=== PATIENT | male | born 1980 | race Caucasian/White ===

== ENCOUNTER 2017-09-21 21:51 | Emergency (ER) | payer OTHER ==
[2017-09-21 22:16] VITALS: BP 122/76; PULSE 76; RESP 16; TEMP 97.8; O2SAT 99
[2017-09-21] MEDS ORDERED: Amoxicillin-Clav 875-125 mg Tab PO STA (23:12)
[2017-09-21] MEDS ORDERED: TDAP Vaccine 0.5 mL Syr IM ONE (23:12)
[2017-09-21] MEDS ORDERED: Rabies Vaccine 2.5 U VIAL IM ONE (23:14)
[2017-09-21] MEDS ORDERED: Rabies Immune Globulin 150 INTLU/ML VIAL IM ONE (23:47)
--- NOTE | 2017-09-22 00:01 | ED PDOC ---
Arrival/HPI - General Chief Complaint: Bite Time Seen by Provider: 09/21/17 23:09 Historian: Patient - History of Present Illness Narrative History of Present Illness (Text): 37 y/o male w/ no significant pmhx presents s/p dog bite to his rt. 2nd digit over the DIP, while outside a [place] trying to restrain his son from toucing a dog through a parked car's window, with the seasonal driver in the front seat. The seasonal driver stated my dog has all hs vaccines, but then refused to await jeremy peña and sped off . Pt managed to capture license plate and file police report and desires to be safe and receive rabies vaccine until antirabies vaccine can be confirmed by jeremy peña upon aprpehension of the general dentist/owner and his dog, deneis any tendinous deficit. 09/21/17 23:56 Time/Duration: Prior to Arrival Symptom Onset: Sudden Symptom Course: Unchanged Past Medical History - Provider Review Nursing Documentation Reviewed: Yes - Travel History Have you recently traveled outside [place] w/in the past 3 mons?: No - Infectious Disease Hx of Infectious Diseases: None - Cardiac Hx Cardiac Disorders: Yes - Psychiatric Hx Substance Use: No - Anesthesia Hx Anesthesia: No Family/Social History - Physician Review Nursing Documentation Reviewed: Yes Family/Social History: No Known Family HX Smoking Status: Heavy Smoker > 10 Cigarettes Daily Hx Alcohol Use: No Hx Substance Use: No Allergies/Home Meds Allergies/Adverse Reactions: Allergies No Known Allergies Allergy (Verified 09/21/17 23:09) Home Medications: Home Meds Medication Instructions Recorded Confirmed Atorvastatin [Lipitor] 20 mg PO HS 09/21/17 09/21/17 Review of Systems - Physician Review All systems were reviewed & negative as marked: Yes - Review of Systems Constitutional: Normal Eyes: Normal ENT: Normal Respiratory: Normal Cardiovascular: Normal Gastrointestinal: Normal Genitourinary Male: Normal Musculoskeletal: Normal Skin: Normal Neurological: Normal Endocrine: Normal Hemo/Lymphatic: Normal Psychiatric: Normal Physical Exam Vital Signs Reviewed: Yes Vital Signs Temp Pulse Resp BP Pulse Ox 09/21/17 21:52 97.8 F 76 16 122/76 99 Temperature: Afebrile Blood Pressure: Normal Pulse: Regular Respiratory Rate: Normal Appearance: Positive for: Well-Appearing, Non-Toxic, Comfortable Pain Distress: None Mental Status: Positive for: Alert and Oriented X 3 - Systems Exam Head: Present: Atraumatic, Normocephalic Pupils: Present: PERRL Extroacular Muscles: Present: EOMI Conjunctiva: Present: Normal Mouth: Present: Moist Mucous Membranes Neck: Present: Normal Range of Motion Respiratory/Chest: Present: Clear to Auscultation, Good Air Exchange. No: Respiratory Distress, Accessory Muscle Use Cardiovascular: Present: Regular Rate and Rhythm, Normal S1, S2. No: Murmurs Abdomen: Present: Normal Bowel Sounds. No: Tenderness, Distention, Peritoneal Signs Back: Present: Normal Inspection Upper Extremity: Present: Other. No: Cyanosis, Edema Lower Extremity: Present: Normal Inspection. No: Edema Neurological: Present: GCS=15, CN II-XII Intact, Speech Normal Skin: Present: Warm, Dry, Normal Color. No: Rashes Psychiatric: Present: Alert, Oriented x 3, Normal Insight, Normal Concentration Medical Decision Making ED Course and Treatment: 09/22/17 00:21 Pt. was explained the schedule of the rabies vaccines, and that without confirmation with police report once the dog's general dentist/owner is absconded and that his dog's rabies status is confirmed. - RAD Interpretation Radiology Orders: 09/21/17 23:14 HAND RIGHT 2ND DIGIT (FINGER) [RAD] Stat - Medication Orders Current Medication Orders: Discontinued Medications Amoxicillin/Clavulanate Potassium (Augmentin 875 Mg-125 Mg Tab) 1 tab PO STAT STA PRN Reason: Protocol Stop: 09/21/17 23:13 Last Admin: 09/21/17 23:36 Dose: 1 tab Ibuprofen (Motrin Tab) 800 mg PO STAT STA Stop: 09/21/17 23:13 Last Admin: 09/21/17 23:37 Dose: 800 mg Rabies Immune Globulin (Imogam) 1,700 intlu IM .ONCE ONE Stop: 09/21/17 23:48 Last Admin: 09/22/17 00:32 Dose: 1,700 intlu Rabies Vaccine Human Diploid Cell (Imovax Rabies) 2.5 u IM .ONCE ONE Stop: 09/21/17 23:15 Last Admin: 09/22/17 00:12 Dose: 2.5 u Tetanus/Reduced Diphtheria/Acell Pertussis (Boostrix Vaccine Inj) 0.5 ml IM .ONCE ONE Stop: 09/21/17 23:13 Last Admin: 09/21/17 23:37 Dose: 0.5 ml MAR Immunization Data Document 09/21/17 23:37 SD (Rec: 09/21/17 23:37 SD [id number]) Immunization Data Opt out of sending immunization data to No respository? Suppress immunization data to other No providers from registry? Vaccine Eligibility Yes Vaccine Information Sheet Given Yes Informed Consent Given Yes Vaccine Lot Number [id number] Site Given Left Deltoid Route Intramuscular Immunization Units ml Disposition/Present on Arrival - Present on Arrival Any Indicators Present on Arrival: No History of DVT/PE: No History of Uncontrolled Diabetes: No Urinary Catheter: No History of Decub. Ulcer: No History Surgical Site Infection Following: None - Disposition Have Diagnosis and Disposition been Completed?: Yes Diagnosis: Dog bite Disposition: OTHER INSTITUTION Disposition Time: 01:00 Patient Plan: Discharge Patient Problems: Current Active Problems Problem Status Onset Dog bite Acute Condition: IMPROVED Discharge Instructions (ExitCare): Animal Bite (ED) Print Language: SWEDISH Additional Instructions: You will have to return on -day 3 09/24 -then day 7 09/28/17Friday , -then day 14 September 04, 2017 for rabies immunoglobulin. for repeat rabies immunoglobulin unless you have confirmed that the dog who bit you has received his rabies vaccines. Prescriptions: Amoxicillin/Clavulanate [Augmentin 875 MG-125 MG] 1 tab PO BID 10 Days #20 tab Forms: [facility] ([place]itian)
--- NOTE | 2017-09-22 10:47 | RAD ---
PROCEDURE: Right Index finger radiographs. HISTORY: dog bite COMPARISON: None. TECHNIQUE: AP radiograph of the right hand, as well as spot oblique and lateral images of index finger were obtained. FINDINGS: RIGHT INDEX FINGER: Normal right index finger, without fracture or focal lesion. Remainder of the right hand (as seen on the AP view) grossly intact. JOINTS: Normal. SOFT TISSUES: Normal. OTHER FINDINGS: None. IMPRESSION: No acute fracture or dislocation. No radiopaque foreign body
== END 2017-09-22 01:14 | disposition home or self-care (01) ==
LOC: ED 21:51
DX: S61.250A Open bite of right index finger without damage to nail, initial encounter (principal); W54.0XXA Bitten by dog, initial encounter; Z23 Encounter for immunization; F17.210 Nicotine dependence, cigarettes, uncomplicated